=== PATIENT | male | born 1995 | race Caucasian/White ===

== ENCOUNTER 2024-02-02 08:12 | Emergency (ER) | payer OTHER ==
[2024-02-02] MEDS ORDERED: KETOROLAC 15 MG/ML 1 ML VIAL ONE (09:09)
--- NOTE | 2024-03-09 15:06 | XR ---
Patient Yoel Dalal ID [id number] Order # EXAMINATION TYPE: XR chest 2V DATE OF EXAM: 02/02/2024 COMPARISON: No comparison available on downtime PACS. INDICATION: Chest pain, back pain TECHNIQUE: Frontal and lateral views of the chest are obtained. FINDINGS: The heart size is normal. The pulmonary vasculature is normal. The lungs are clear. IMPRESSION: 1. No acute pulmonary process.
== END 2024-02-02 13:33 | disposition home or self-care (01) ==
LOC: EC 08:12
DX: R07.89 Other chest pain (principal)
CPT/HCPCS: 93005; 85379; 80053; 82150; 83690; 84484; 85025; 85610; 85730; 71046; 99285; 96374; J1885